=== PATIENT | male | born 1990 | race Caucasian/White ===

== ENCOUNTER 2019-07-05 23:43 | Inpatient (IN) | payer MEDICAID ==
[~2019-07-05] VITALS: Ht 177.8 cm; Wt 72.6 kg
[2019-07-05 23:45] VITALS: BP_SYST 152
[2019-07-06] MEDS ORDERED: PREDNISONE 20 MG TABLET PO ONE
[2019-07-06] MEDS ORDERED: IPRATROPIUM/ALBUTEROL SULFATE 3 ML AMPUL.NEB (DUONEB) INH ONE ×3
[2019-07-06] MEDS ORDERED: IPRATROPIUM/ALBUTEROL SULFATE 3 ML AMPUL.NEB (DUONEB) ONE (00:16)
[2019-07-06] MEDS ORDERED: ALBUTEROL SULFATE 0.083% 2.5 MG/3 ML VIAL.NEB INH ONE ×3 (01:00→02:14)
[2019-07-06] MEDS ORDERED: MAGNESIUM SULFATE 50 ML IV ONE (01:00)
[2019-07-06 01:38] LABS: BASOPHILS # (AUTO) 0.1 K/uL (0.0-0.2); BASOPHILS % (AUTO) 0.5 % (0.0-2.0); EOSINOPHILS # (AUTO) 0.5 K/uL (0.0-0.4); EOSINOPHILS % (AUTO) 3.4 % (0.0-4.0); HEMATOCRIT 48.9 % (36-54); LYMPHOCYTES # (AUTO) 1.2 K/uL (1.0-5.5); LYMPHOCYTES % (AUTO) 8.3 % (20.5-51.5); MEAN CORPUSCULAR HEMOGLOBIN 32 pg (27-31); MEAN CORPUSCULAR HGB CONC 35 % (32-36); MEAN CORPUSCULAR VOLUME 91 fL (79.0-98.0); MONOCYTES # (AUTO) 1.2 K/uL (0.0-1.0); MONOCYTES % (AUTO) 8.2 % (1.7-9.3); NEUTROPHILS # (AUTO) 11.3 K/uL (1.8-7.7); NEUTROPHILS % (AUTO) 79.6 % (40.0-70.0); PLATELET COUNT (AUTO) 272 K/uL (130-430); RED BLOOD CELL COUNT(AUTO) 5.39 MIL/uL (4.2-6.2); RED CELL DISTRIBUTION WIDTH 13.6 % (9.0-15.0); WHITE BLOOD COUNT (AUTO) 14.2 K/uL (4.8-10.8)
[2019-07-06 01:46] LABS: CALCIUM 8.8 mg/dL (8.4-11.0); CREATININE 0.92 mg/dL (0.55-1.30); POTASSIUM 3.6 mmol/L (3.5-5.1)
[2019-07-06 01:51] LABS: ALBUMIN 4.4 g/dL (3.4-4.8); TOTAL BILIRUBIN 0.7 mg/dL (0.0-1.0)
[2019-07-06 03:40] VITALS: BP_SYST 152
[2019-07-06] MEDS ORDERED: FLU VACC QS2019-20 36MOS UP/PF 60 MCG/0.5 ML SYRINGE I.M. PRN (04:00)
[2019-07-06 04:23] VITALS: BP_SYST 152
[2019-07-06] MEDS ORDERED: IPRATROPIUM/ALBUTEROL SULFATE 3 ML AMPUL.NEB (DUONEB) INH PRN (04:30)
[2019-07-06] MEDS ORDERED: ONDANSETRON HCL 4 MG/2 ML VIAL IVP PRN (06:30)
[2019-07-06] MEDS ORDERED: HYDROcodone/ACETAMIN 5-325 MG TAB (NORCO/ VICODIN) PO PRN (06:30)
[2019-07-06] MEDS ORDERED: ACETAMINOPHEN 325 MG TABLET PO PRN (06:30)
[2019-07-06] MEDS: IPRATROPIUM/ALBUTEROL SULFATE 3 ML AMPUL.NEB (DUONEB) INH SCH ×3 (07:19→19:51)
[2019-07-06 07:55] VITALS: BP_SYST 141
[2019-07-06 08:30] LABS: BASOPHILS % (AUTO) 0.5 % (0.0-2.0); EOSINOPHILS % (AUTO) 0.1 % (0.0-4.0); HEMATOCRIT 49.9 % (36-54); HEMOGLOBIN 17.5 g/dL (14.0-18.0); LYMPHOCYTES # (AUTO) 0.3 K/uL (1.0-5.5); LYMPHOCYTES % (AUTO) 5.7 % (20.5-51.5); MEAN CORPUSCULAR HEMOGLOBIN 32 pg (27-31); MEAN CORPUSCULAR HGB CONC 35 % (32-36); MEAN CORPUSCULAR VOLUME 91 fL (79.0-98.0); MONOCYTES # (AUTO) 0.1 K/uL (0.0-1.0); MONOCYTES % (AUTO) 2.5 % (1.7-9.3); NEUTROPHILS # (AUTO) 4.1 K/uL (1.8-7.7); NEUTROPHILS % (AUTO) 91.2 % (40.0-70.0); PLATELET COUNT (AUTO) 281 K/uL (130-430); RED BLOOD CELL COUNT(AUTO) 5.48 MIL/uL (4.2-6.2); RED CELL DISTRIBUTION WIDTH 13.4 % (9.0-15.0)
[2019-07-06 08:31] LABS: WHITE BLOOD COUNT (AUTO) 4.4 K/uL (4.8-10.8)
[2019-07-06 08:42] LABS: PROTHROMBIN TIME 9.9 SECS (9.5-12.5)
[2019-07-06 08:56] LABS: ANION GAP 10 (5-15); CALCIUM 9.4 mg/dL (8.4-11.0); CHLORIDE 102 mmol/L (98-107); CREATININE 0.91 mg/dL (0.55-1.30); GFR AFRICAN AMERICAN 125 mL/min (>90); GLUCOSE 158 mg/dL (70-99); PHOSPHORUS 1.6 mg/dL (2.7-4.5); POTASSIUM 4.2 mmol/L (3.5-5.1); SODIUM SERUM 136 mmol/L (136-145); THYROID STIMULATING HORMONE 0.24 uIu/mL (0.36-3.74); UREA NITROGEN, BLOOD 14 mg/dL (8-21)
[2019-07-06 09:16] LABS: CHOLESTEROL 117 mg/dL (<200); HDL CHOLESTEROL 85 mg/dL (>45); LDL CHOLESTEROL 44 mg/dL (<100); TRIGLYCERIDES 23 mg/dL (30-150)
[2019-07-06] MEDS: methylPREDNISolone SOD SUCC/PF 62.5 MG/ML VIAL IVP SCH ×2 (09:53→20:21)
[2019-07-06] MEDS: DOCUSATE SODIUM 100 MG CAPSULE PO SCH ×2 (09:53→21:00)
[2019-07-06] MEDS ORDERED: THIAMINE HCL 100 MG TABLET PO ONE (10:15)
[2019-07-06] MEDS ORDERED: MULTIVITAMINS TAB 1 TABLET PO ONE (10:15)
[2019-07-06] MEDS ORDERED: FOLIC ACID 1 MG TABLET PO ONE (10:15)
[2019-07-06] MEDS ORDERED: AZITHROMYCIN 250 MG TABLET PO ONE (10:15)
[2019-07-06 11:50] VITALS: BP_SYST 138
[2019-07-06 16:00] VITALS: BP_SYST 141
[2019-07-06 19:26] LABS: BILIRUBIN,URINE NEGATIVE (NEGATIVE); BLOOD, URINE NEGATIVE (NEGATIVE); CLARITY/URINE CLEAR (CLEAR); COLOR,URINE YELLOW (YELLOW); GLUCOSE,URINE 1+ (NEGATIVE); KETONES,URINE TRACE (NEGATIVE); LEUKOCYTE ESTERASE ,URINE NEGATIVE (NEGATIVE); NITRITE, URINE NEGATIVE (NEGATIVE); PROTEIN URINE TRACE (NEGATIVE); UROBILINOGEN,URINE 0.2 (0.2-1.0)
[2019-07-06 19:41] LABS: BACTERIA,URINE FEW /HPF (None Seen); MUCUS,URINE None Seen /LPF (None Seen); RBC,URINE NONE SEEN /HPF (0-3); WBC,URINE 0-3 /HPF (0-3)
[2019-07-06 20:00] VITALS: BP_SYST 127
[2019-07-07] VITALS: BP_SYST 131
[2019-07-07] MEDS: IPRATROPIUM/ALBUTEROL SULFATE 3 ML AMPUL.NEB (DUONEB) INH SCH ×3 (01:00→13:00)
[2019-07-07 06:25] LABS: BASOPHILS % (AUTO) 0.1 % (0.0-2.0); HEMATOCRIT 50.3 % (36-54); HEMOGLOBIN 17.5 g/dL (14.0-18.0); LYMPHOCYTES # (AUTO) 0.6 K/uL (1.0-5.5); MEAN CORPUSCULAR HEMOGLOBIN 32 pg (27-31); MEAN CORPUSCULAR HGB CONC 35 % (32-36); MEAN CORPUSCULAR VOLUME 92 fL (79.0-98.0); MONOCYTES # (AUTO) 0.8 K/uL (0.0-1.0); MONOCYTES % (AUTO) 4.8 % (1.7-9.3); NEUTROPHILS # (AUTO) 14.9 K/uL (1.8-7.7); NEUTROPHILS % (AUTO) 91.1 % (40.0-70.0); PLATELET COUNT (AUTO) 302 K/uL (130-430); RED BLOOD CELL COUNT(AUTO) 5.48 MIL/uL (4.2-6.2); RED CELL DISTRIBUTION WIDTH 13.3 % (9.0-15.0); WHITE BLOOD COUNT (AUTO) 16.4 K/uL (4.8-10.8)
[2019-07-07 06:46] LABS: CALCIUM 9.6 mg/dL (8.4-11.0); CREATININE 0.79 mg/dL (0.55-1.30); POTASSIUM 4.2 mmol/L (3.5-5.1)
[2019-07-07 08:00] VITALS: BP_SYST 147
[2019-07-07] MEDS ORDERED: FOLIC ACID 1 MG TABLET PO SCH (09:00)
[2019-07-07] MEDS ORDERED: THIAMINE HCL 100 MG TABLET PO SCH (09:00)
[2019-07-07] MEDS: methylPREDNISolone SOD SUCC 40 MG/ML VIAL IVP SCH ×2 (09:00→10:01)
[2019-07-07] MEDS ORDERED: MULTIVITAMINS TAB 1 TABLET PO SCH (09:00)
[2019-07-07] MEDS ORDERED: AZITHROMYCIN 250 MG TABLET PO SCH (09:00)
[2019-07-07] MEDS ORDERED: ALBMDI INH (09:07)
[2019-07-07] MEDS ORDERED: PRED10TA PO (09:07)
[2019-07-07] MEDS: DOCUSATE SODIUM 100 MG CAPSULE PO SCH (10:00)
[2019-07-07 12:33] VITALS: BP_SYST 157
[2019-07-07 16:00] VITALS: BP_SYST 154
[2019-07-07 17:03] VITALS: BP_SYST 154
== END 2019-07-07 17:30 | disposition home or self-care (01) | DRG 133 ==
LOC: SED 23:43 → STU 07-06 02:56 → SMU 07-06 14:20
PROVIDERS: ADMIT Student in an Organized Health Care Education/Training Program; ATTEND Student in an Organized Health Care Education/Training Program
PROC: 5A09357 Assistance with Respiratory Ventilation, Less than 24 Consecutive Hours, Continuous Positive Airway Pressure (ICD-10-PCS; principal; 2019-07-06)
DX: J96.01 Acute respiratory failure with hypoxia (principal); E83.39 Other disorders of phosphorus metabolism; J45.901 Unspecified asthma with (acute) exacerbation; F10.20 Alcohol dependence, uncomplicated; F12.90 Cannabis use, unspecified, uncomplicated; F15.90 Other stimulant use, unspecified, uncomplicated; F17.210 Nicotine dependence, cigarettes, uncomplicated; Z91.19 Patient's noncompliance with other medical treatment and regimen; Z88.0 Allergy status to penicillin; Z79.899 Other long term (current) drug therapy
CPT/HCPCS: 36415; 71045; 80048; 80053; 80061; 81000-TC; 83036; 83735-TC; 83880; 84100-TC; 84443-TC; 84484; 85025; 85610-TC; 85730-TC; 93005; 94640; 94660; 94760; 96365; 99285; J1030; J2930; J3475; J7512; J7613; J7620; Q0144

== ENCOUNTER 2019-07-26 07:14 | Emergency (ER) | payer MEDICAID ==
[~2019-07-26] VITALS: Ht 175.3 cm; Wt 74.8 kg
[~2019-07-26 07:14] MED LIST: ALBMDI INH; PRED10TA PO
[2019-07-26 07:17] VITALS: BP_SYST 142
--- NOTE | 2019-07-26 07:24 | NUR ---
Patient to ER bed 2 to gown for evaluation. Side rails up. Report given to Leonardo ALVARES
--- NOTE | 2019-07-26 07:25 | NUR ---
RN at bedside getting verbal orders from MD and assessing pt. RT at bedside as well and pt is getting first breathing tx.
--- NOTE | 2019-07-26 07:30 | NUR ---
IV access placed 20g in left ac in one attempt. Solumedrol given
--- NOTE | 2019-07-26 07:40 | NUR ---
MD Garay at bedside assessing pt.
[2019-07-26] MEDS ORDERED: IPRATROPIUM/ALBUTEROL SULFATE 3 ML AMPUL.NEB (DUONEB) INH ONE ×4 (07:45→08:15)
[2019-07-26] MEDS: methylPREDNISolone SOD SUCC/PF 62.5 MG/ML VIAL IVP ONE (08:07)
[2019-07-26] MEDS: MAGNESIUM SULFATE 50 ML IV ONE (08:11)
--- NOTE | 2019-07-26 08:53 | NUR ---
Pt has removed the bipap. RT notified. RT is removing the Bipap.
--- NOTE | 2019-07-26 09:07 | NUR ---
pt is up walking , going to toilet. stable. 02 sat is 99-100% on RA.
--- NOTE | 2019-07-26 09:10 | NUR ---
MD Meyer at bedside re-evaluating pt. pt is eating breakfast and talking with his girlfriend at bedside.
--- NOTE | 2019-07-26 09:45 | NUR ---
MD Meyer re-evaluating pt and ordered another breathing tx.
[2019-07-26] MEDS ORDERED: IPRATROPIUM BROM 0.5 MG/2.5 ML VIAL.NEB (ATROVENT) INH ONE (10:00)
[2019-07-26] MEDS ORDERED: ALBUTEROL SULFATE 0.083% 2.5 MG/3 ML VIAL.NEB INH ONE (10:00)
[2019-07-26 10:50] VITALS: BP_SYST 127
--- NOTE | 2019-07-26 10:50 | NUR ---
DC pt home with prescriptions and education. pt is stable and relaxed. was sleeping
== END 2019-07-26 10:50 | disposition home or self-care (01) ==
LOC: SED 07:14
DX: J45.909 Unspecified asthma, uncomplicated (principal); F17.290 Nicotine dependence, other tobacco product, uncomplicated; Z88.0 Allergy status to penicillin; Z88.8 Allergy status to other drugs, medicaments and biological substances
CPT/HCPCS: 94640; 94660; 96365; 96375; 99285

== ENCOUNTER 2019-08-16 17:54 | Emergency (ER) | payer MEDICAID ==
[~2019-08-16] VITALS: Ht 175.3 cm; Wt 65.8 kg
[2019-08-16 18:00] VITALS: BP_SYST 147
--- NOTE | 2019-08-16 18:04 | NUR ---
Patient to ER bed 7 to gown for evaluation. Side rails up. Report given to DIA NELSON.
--- NOTE | 2019-08-16 18:05 | NUR ---
Patient is awake, alert, and oriented x4. Patient states he started having SOB 2 days ago and his inhaler did not work. Patient is not very forthcoming with answers to questions.
--- NOTE | 2019-08-16 18:10 | NUR ---
ER Dr. Oconnell at bedside examining patient.
[2019-08-16] MEDS ORDERED: MAGNESIUM SULFATE 1 GM in NS 50 ML IV ONE (18:15)
[2019-08-16] MEDS ORDERED: IPRATROPIUM BROM 0.5 MG/2.5 ML VIAL.NEB (ATROVENT) INH ONE ×2 (18:15→18:30)
[2019-08-16] MEDS ORDERED: ALBUTEROL SULFATE 0.083% 2.5 MG/3 ML VIAL.NEB INH ONE ×2 (18:15→18:30)
[2019-08-16] MEDS ORDERED: methylPREDNISolone SOD SUCC/PF 62.5 MG/ML VIAL IVP ONE (18:15)
[2019-08-16] MEDS ORDERED: MAGNESIUM SULFATE 1 GM/2 ML VIAL ONE (18:44)
--- NOTE | 2019-08-16 18:45 | NUR ---
Patient instructed that we need a urine sample, he verbalized understanding. Sample cup provided.
[2019-08-16 18:58] LABS: BASOPHILS # (AUTO) 0.1 K/uL (0.0-0.2); BASOPHILS % (AUTO) 0.8 % (0.0-2.0); CALCIUM 9.1 mg/dL (8.4-11.0); CREATININE 0.95 mg/dL (0.55-1.30); EOSINOPHILS # (AUTO) 0.4 K/uL (0.0-0.4); EOSINOPHILS % (AUTO) 3.6 % (0.0-4.0); HEMATOCRIT 50.5 % (36-54); HEMOGLOBIN 17.6 g/dL (14.0-18.0); LYMPHOCYTES # (AUTO) 2.1 K/uL (1.0-5.5); LYMPHOCYTES % (AUTO) 17.9 % (20.5-51.5); MEAN CORPUSCULAR HEMOGLOBIN 32 pg (27-31); MEAN CORPUSCULAR HGB CONC 35 % (32-36); MEAN CORPUSCULAR VOLUME 90 fL (79.0-98.0); MONOCYTES # (AUTO) 0.9 K/uL (0.0-1.0); MONOCYTES % (AUTO) 8.1 % (1.7-9.3); NEUTROPHILS % (AUTO) 69.6 % (40.0-70.0); PLATELET COUNT (AUTO) 255 K/uL (130-430); POTASSIUM 3.9 mmol/L (3.5-5.1); RED BLOOD CELL COUNT(AUTO) 5.59 MIL/uL (4.2-6.2); RED CELL DISTRIBUTION WIDTH 13.9 % (9.0-15.0); WHITE BLOOD COUNT (AUTO) 11.5 K/uL (4.8-10.8)
[2019-08-16 19:03] LABS: ALBUMIN 4.4 g/dL (3.4-4.8)
--- NOTE | 2019-08-16 19:11 | NUR ---
Report given to DIA Cali for continuation of care.
[2019-08-16 19:59] VITALS: BP_SYST 156
--- NOTE | 2019-08-16 19:59 | NUR ---
Patient given written and verbal discharge instructions and verbalizes understanding. ER MD discussed with patient the results and treatment provided. Patient in stable condition. ID arm band removed. IV catheter removed intact and dressing applied, no active bleeding. Rx of Zithrom,ax, Proventil, Prednisone given. Patient educated on pain management and to follow up with PMD. Pain Scale 0. Opportunity for questions provided and answered. Medication side effect fact sheet provided.
== END 2019-08-16 19:59 | disposition home or self-care (01) ==
LOC: SED 17:54
DX: J45.901 Unspecified asthma with (acute) exacerbation (principal); F12.90 Cannabis use, unspecified, uncomplicated; F17.210 Nicotine dependence, cigarettes, uncomplicated; Z88.0 Allergy status to penicillin; Z79.899 Other long term (current) drug therapy
CPT/HCPCS: 36415; 80053; 84484; 85025; 94640; 96374; 99284; G0482; J2930; J3475; J7030; J7613

== ENCOUNTER 2019-10-16 01:19 | Emergency (ER) | payer MEDICAID ==
[~2019-10-16] VITALS: Ht 175.3 cm; Wt 77.1 kg
[2019-10-16 01:55] VITALS: BP_SYST 143
--- NOTE | 2019-10-16 02:06 | NUR ---
Pt ambulatory to bed 1 for evaluation
--- NOTE | 2019-10-16 02:19 | NUR ---
Pt presents to ER with c/o asthma exacerbation. Pt A&Ox4. Pt states he has been short of breath for 3 days but SOB got progressively worse today. Pt states he ran out of asthma medication. Upon assessment, pt bilateral lung sounds diminished with wheezing present. Pt using accessory muscles to breath. Pt states he has increased asthma exacerbations since May 2019. Pt states he stopped smoking cigarettes in May due to asthma exacerbations. Pt states he still occasionally smokes marijuana. Will continue to monitor.
--- NOTE | 2019-10-16 02:40 | NUR ---
ER Dr. Segal at bedside examining patient.
[2019-10-16] MEDS ORDERED: LevALBUTEROL HCL 1.25 MG/0.5 ML *CONC.* VIAL.NEB (XOPENEX CONC.) INH ONE ×4 (02:45→05:00)
[2019-10-16] MEDS ORDERED: IPRATROPIUM BROM 0.5 MG/2.5 ML VIAL.NEB (ATROVENT) INH ONE (02:45)
[2019-10-16] MEDS ORDERED: PREDNISONE 20 MG TABLET PO ONE (02:45)
--- NOTE | 2019-10-16 02:48 | NUR ---
Pt medicated with prednisone PO. Pt tolerated well. Will continue to monitor.
--- NOTE | 2019-10-16 02:55 | NUR ---
Respiratory at bedside.
--- NOTE | 2019-10-16 03:36 | NUR ---
Respiratory at bedside.
--- NOTE | 2019-10-16 03:57 | NUR ---
ER Dr. Segal at bedside examining patient.
[2019-10-16] MEDS ORDERED: ALBUTEROL SULFATE 0.083% 2.5 MG/3 ML VIAL.NEB INH ONE ×2 (04:00→04:22)
--- NOTE | 2019-10-16 04:07 | NUR ---
Respiratory at bedside.
--- NOTE | 2019-10-16 04:40 | NUR ---
Pt states, "Thank you, I feel like I can actually breath now." MD Segal notified. Will continue to monitor.
[2019-10-16 05:20] VITALS: BP_SYST 136
--- NOTE | 2019-10-16 05:20 | NUR ---
Patient given written and verbal discharge instructions and verbalizes understanding. ER MD Segal discussed with patient the results and treatment provided. Patient in stable condition. ID arm band removed. Rx of albuterol nebulizer, albuterol inhaler, and prednisone given. Patient educated on pain management and to follow up with PMD. Pain Scale 0/10. Opportunity for questions provided and answered. Medication side effect fact sheet provided.
== END 2019-10-16 05:20 | disposition home or self-care (01) ==
LOC: SED 01:19
DX: J45.901 Unspecified asthma with (acute) exacerbation (principal); I10 Essential (primary) hypertension; F12.90 Cannabis use, unspecified, uncomplicated; Z87.891 Personal history of nicotine dependence
CPT/HCPCS: 94640; 99285; J7512; J7612; J7613

== ENCOUNTER 2019-10-27 11:39 | Inpatient (IN) | payer MEDICAID ==
[2019-10-27] VITALS (14 sets, daily range): BP systolic 110–164
[~2019-10-27] VITALS: Ht 175.3 cm; Wt 78.9 kg
--- NOTE | 2019-10-27 12:10 | NUR ---
PT C/O ASTHMA EXACERBATION UNRESOLVED
[2019-10-27] MEDS ORDERED: ALBUTEROL SULFATE 0.083% 2.5 MG/3 ML VIAL.NEB INH ONE ×2 (12:15→12:26)
[2019-10-27] MEDS ORDERED: IPRATROPIUM BROM 0.5 MG/2.5 ML VIAL.NEB (ATROVENT) INH ONE ×2 (12:15→12:26)
[2019-10-27] MEDS ORDERED: PREDNISONE 20 MG TABLET PO ONE (12:15)
--- NOTE | 2019-10-27 12:15 | NUR ---
RT AT BEDSIDE
--- NOTE | 2019-10-27 12:15 | NUR ---
Patient to ER bed 5 to gown for evaluation. Side rails up. Report given to LANA ALVARES.
--- NOTE | 2019-10-27 12:25 | NUR ---
Patient came to the ER due to SOB. Patient advised that he ran out of his albuterol and began having issues breathing when coming to the ER. Patient was tachypnic with a rate of 22, use of accessory muscles to breathe. Helped patient tripod and patient was diaphoretic. Patient is AOx4. MD aware of patient's SOB and difficulty breathing. Patient already started on breathing treatment.
[2019-10-27] MEDS ORDERED: MAGNESIUM SULFATE 50 ML IV ONE (12:45)
[2019-10-27] MEDS ORDERED: NACL 0.9% 1,000 ML IV ONE (12:45)
--- NOTE | 2019-10-27 13:00 | NUR ---
# 20 gauge angiocath placed to left forearm. Use of asceptic technique. Opsite placed over site. Blood return noted. Flushed with 10 cc of normal saline. No evidence of infiltration noted.
[2019-10-27 13:10] LABS: BASOPHILS # (AUTO) 0.1 K/uL (0.0-0.2); BASOPHILS % (AUTO) 0.6 % (0.0-2.0); EOSINOPHILS # (AUTO) 0.5 K/uL (0.0-0.4); HEMATOCRIT 51.6 % (36-54); HEMOGLOBIN 17.3 g/dL (14.0-18.0); LYMPHOCYTES % (AUTO) 12.1 % (20.5-51.5); MEAN CORPUSCULAR HEMOGLOBIN 31 pg (27-31); MEAN CORPUSCULAR HGB CONC 34 % (32-36); MEAN CORPUSCULAR VOLUME 91 fL (79.0-98.0); MONOCYTES # (AUTO) 1.9 K/uL (0.0-1.0); MONOCYTES % (AUTO) 11.9 % (1.7-9.3); NEUTROPHILS # (AUTO) 11.8 K/uL (1.8-7.7); PLATELET COUNT (AUTO) 301 K/uL (130-430); RED BLOOD CELL COUNT(AUTO) 5.69 MIL/uL (4.2-6.2); RED CELL DISTRIBUTION WIDTH 14.2 % (9.0-15.0); WHITE BLOOD COUNT (AUTO) 16.3 K/uL (4.8-10.8)
[2019-10-27 13:21] LABS: CALCIUM 9.7 mg/dL (8.4-11.0); CREATININE 0.86 mg/dL (0.55-1.30); POTASSIUM 3.5 mmol/L (3.5-5.1)
[2019-10-27 13:26] LABS: ALBUMIN 4.7 g/dL (3.4-4.8); TOTAL BILIRUBIN 0.8 mg/dL (0.0-1.0)
--- NOTE | 2019-10-27 13:30 | NUR ---
Patient became air hungry and tachypnic with use of accessory muscles to breath. Informed MD and intubation started. 2 RT and 2 RN at bedside. 10 mg of Succinylcholine as per MD. Patient intubated with 7.5 ET tube and lip line 23 cm. Vitals were HR 123, 96%, resp 20, 184/107. Right nare NG tube placed. Placment confirmed via xray by MD.
[2019-10-27 13:34] LABS: NEUTROPHILS % (AUTO) 72.4 % (40.0-70.0)
[2019-10-27] MEDS ORDERED: fentaNYL CITRATE/PF 100 MCG/2 ML AMP ONE (13:34)
[2019-10-27] MEDS ORDERED: PROPOFOL DRIP 100 ML IV ONE ×3 (13:45→16:21)
[2019-10-27] MEDS ORDERED: fentaNYL CITRATE/PF 100 MCG/2 ML AMP IVP ONE (13:45)
[2019-10-27] MEDS ORDERED: methylPREDNISolone SOD SUCC/PF 62.5 MG/ML VIAL IVP ONE (14:00)
[2019-10-27] MEDS ORDERED: LORazepam 2 MG/ML VIAL IVP ONE (14:00)
--- NOTE | 2019-10-27 15:15 | NUR ---
Patient was seen sitting in bed trying to pull tubes. RN Randy and RN Joseph came to bed 1 to assist in preventing injury to patient. Patient broke bilateral wrist restraints and self extubated and removed NG tube. MD made aware. Patient reintubated verocoronium 10 mg as per MD. Patient reintubated with ET 7 and lip line of 24. OG tube placed. Placment confirmed via xray and confirmed by MD.
[2019-10-27] MEDS ORDERED: VECURONIUM BROMIDE 10 MG/VIAL (NORCURON) IVP ONE (15:30)
[2019-10-27] MEDS ORDERED: SUCCINYLCHOLINE CHLORIDE 20 MG/ML(QUELICIN) IVP ONE (16:00)
[2019-10-27] MEDS ORDERED: VECURONIUM BROMIDE 10 MG/VIAL (NORCURON) IV ONE (16:00)
--- NOTE | 2019-10-27 16:05 | NUR ---
Patient will be admitted to care of Joseph ALVARES. Admitted to ICU unit. Will go to room 8. Belongings list completed. Complete and up to date summary report printed. Resumed care.
--- NOTE | 2019-10-27 16:15 | NUR ---
Witnessed diprivan drip infusing at 45 mcgs/kg/min on the pump.
--- NOTE | 2019-10-27 16:15 | NUR ---
Witnessed Diprivan increased to 45 mcg/kg/min
--- NOTE | 2019-10-27 16:17 | NUR ---
CONSULT PULMO. CONSULTING MD: DR. COOPER SPOKE TO: LEONOR DIALED: [phone] ORDERED BY: DR. WALL
--- NOTE | 2019-10-27 16:25 | NUR ---
Witnessed Diprivan drip infusing at 50 mcgs/kg/min on the pump.
--- NOTE | 2019-10-27 16:25 | NUR ---
Witnessed Diprivan increased to 50 mcg/kg/min
[2019-10-27] MEDS ORDERED: PROPOFOL 200MG/ 20ML VIAL (DIPRIVAN) IV ONE (16:30)
[2019-10-27 16:45] LABS: BARBITURATE, URINE NEGATIVE (NEG <=200); METHAMPHETAMINES SCREEN,URINE NEGATIVE (NEG <=500); URINE AMPHETAMINE POSITIVE (NEG <=500)
[2019-10-27 16:46] LABS: BENZODIAZEPINE, URINE NEGATIVE (NEG <=150); CANNABINOID, URINE POSITIVE (NEG <=50); COCAINE, URINE NEGATIVE (NEG <=150); OPIATE, URINE NEGATIVE (NEG <=100); PHENCYCLIDINE SCREEN,URINE NEGATIVE (NEG <=25); UR TRICYCLIC ANTIDEPRESSANTS NEGATIVE (NEG <=300); URINE METHADONE NEGATIVE (NEG <=200); URINE OXYCODONE SCREEN NEGATIVE (NEG <=100); URINE PROPOXYPHENE SCREEN NEGATIVE (NEG <=300)
[2019-10-27] MEDS ORDERED: KCL 40 mEq in 100 mL (PREMIX) 100 ML IV ONE (17:15)
[2019-10-27] MEDS: LORazepam 2 MG/ML VIAL IVP PRN ×3 (17:19→20:56)
[2019-10-27] MEDS: NACL 0.9% 1,000 ML IV SCH ×2 (17:22→23:03)
--- NOTE | 2019-10-27 17:34 | NUR ---
Called point of contact Brianna Sierra [phone] who is next of kin and person to notify. Per Brianna the patient does not have a permanent place of residence and lives in his car or with friends. Also informed that the patient has visited [facility] and [facility] for similar issues over the last few months. The patient is not in contact with an relatives including any direct kin. She will be coming to visit him after 6pm.
[2019-10-27] MEDS ORDERED: POTASSIUM CHLORIDE 40 MEQ in NS 250 ML IV ONE (17:45)
[2019-10-27] MEDS ORDERED: MORPHINE 4 MG/ML INJ. SYRINGE ONE (18:00)
[2019-10-27] MEDS: methylPREDNISolone SOD SUCC/PF 62.5 MG/ML VIAL IVP SCH ×2 (18:54→23:03)
[2019-10-27] MEDS: MONTELUKAST 10 MG TABLET PO SCH (18:54)
[2019-10-27] MEDS: MORPHINE 4 MG/ML INJ. SYRINGE IVP PRN ×2 (18:55→20:55)
--- NOTE | 2019-10-27 19:25 | NUR ---
Closing Note Provided plan of care via sbar to receiving nurse RN. Completed patient round. Safety measures met.
--- NOTE | 2019-10-27 19:30 | NUR ---
Pt in bed VSS tolerating mechanical ventilator. On 4 point restraint, Good circulation and without redness noted. Safety precaution observed. Colon catheter in placed draining cloudy yellow urine to gravity. Diprivan drip running. Will continue to monitor Pt.
[2019-10-27] MEDS: BUDESONIDE 0.5 MG/2 ML AMPUL.NEB INH SCH (19:35)
[2019-10-27] MEDS: IPRATROPIUM/ALBUTEROL SULFATE 3 ML AMPUL.NEB (DUONEB) INH SCH ×2 (19:35→23:05)
[2019-10-27] MEDS ORDERED: FAMOTIDINE PF 20 MG/2 ML VIAL IVP SCH (21:00)
[2019-10-27] MEDS: FAMOTIDINE PF 20 MG/2 ML VIAL IVP SCH (21:00)
--- NOTE | 2019-10-27 21:30 | NUR ---
Spoke with Dr Dove regarding Pt's ABG. No new orders received. Will continue to monitor Pt.
[2019-10-27] MEDS: PROPOFOL DRIP 100 ML IV PRN (21:55)
[2019-10-28] VITALS (29 sets, daily range): BP systolic 126–156
--- NOTE | 2019-10-28 | NUR ---
Pt in bed, no acute distress noted. Safety precaution observed. Will continue to monitor Pt.
[2019-10-28] MEDS: PROPOFOL DRIP 100 ML IV PRN ×7 (02:39→23:56)
[2019-10-28] MEDS: IPRATROPIUM/ALBUTEROL SULFATE 3 ML AMPUL.NEB (DUONEB) INH SCH ×4 (03:45→23:25)
--- NOTE | 2019-10-28 04:00 | NUR ---
Pt in bed, no acute distress noted. Safety precaution observed. Will continue to monitor Pt.
[2019-10-28] MEDS: LORazepam 2 MG/ML VIAL IVP PRN ×6 (04:36→23:52)
[2019-10-28] MEDS: MORPHINE 4 MG/ML INJ. SYRINGE IVP PRN ×7 (04:36→23:53)
[2019-10-28] MEDS: methylPREDNISolone SOD SUCC/PF 62.5 MG/ML VIAL IVP SCH ×3 (05:09→17:25)
[2019-10-28] MEDS: NACL 0.9% 1,000 ML IV SCH ×2 (05:10→08:36)
[2019-10-28 05:49] LABS: BASOPHILS # (AUTO) 0.1 K/uL (0.0-0.2); BASOPHILS % (AUTO) 0.3 % (0.0-2.0); HEMATOCRIT 46.5 % (36-54); HEMOGLOBIN 15.3 g/dL (14.0-18.0); LYMPHOCYTES # (AUTO) 0.6 K/uL (1.0-5.5); MEAN CORPUSCULAR HEMOGLOBIN 30 pg (27-31); MEAN CORPUSCULAR HGB CONC 33 % (32-36); MEAN CORPUSCULAR VOLUME 92 fL (79.0-98.0); MONOCYTES # (AUTO) 0.8 K/uL (0.0-1.0); NEUTROPHILS # (AUTO) 18.7 K/uL (1.8-7.7); NEUTROPHILS % (AUTO) 92.7 % (40.0-70.0); PLATELET COUNT (AUTO) 229 K/uL (130-430); RED BLOOD CELL COUNT(AUTO) 5.06 MIL/uL (4.2-6.2); WHITE BLOOD COUNT (AUTO) 20.1 K/uL (4.8-10.8)
[2019-10-28 06:14] LABS: ALBUMIN 3.4 g/dL (3.4-4.8); CALCIUM 8.8 mg/dL (8.4-11.0); CREATININE 0.86 mg/dL (0.55-1.30); PHOSPHORUS 3.7 mg/dL (2.7-4.5); POTASSIUM 4.9 mmol/L (3.5-5.1); TOTAL BILIRUBIN 0.9 mg/dL (0.0-1.0)
--- NOTE | 2019-10-28 06:52 | NUR ---
Report given to oncoming RN. IV lines and skin checked.
--- NOTE | 2019-10-28 07:13 | NUR ---
RECEIVED NURSING REPORT FROM RACKING MACHINE OPERATOR APARNA Aguilera
[2019-10-28] MEDS: BUDESONIDE 0.5 MG/2 ML AMPUL.NEB INH SCH ×2 (08:12→19:41)
[2019-10-28] MEDS: FAMOTIDINE PF 20 MG/2 ML VIAL IVP SCH ×2 (08:35→22:02)
[2019-10-28] MEDS: 0.45% NACL 1,000 ML IV SCH ×2 (10:00→17:27)
--- NOTE | 2019-10-28 10:10 | NUR ---
Nutrition Update Casey Scale 15 noted. Pt admitted for acute respiratory failure. Diet: N/A BMI: 25.8 kg/m2 RD to follow per nutrition care standards.
--- NOTE | 2019-10-28 11:22 | NUR ---
SEE PATIENT, ORDERED CHANGE VENTILATOR SETTING TO AC 18, TV 450, FIO2 50 %, KEEP CLOSE MONITOR
[2019-10-28] MEDS: MONTELUKAST 10 MG TABLET PO SCH (17:26)
--- NOTE | 2019-10-28 19:27 | NUR ---
GIVE COMPLETE NURSING REPORT TO AUTOMOBILE LIGHTS ASSEMBLER TERESE Aguilera
[2019-10-29] VITALS (34 sets, daily range): BP systolic 94–157
[2019-10-29] MEDS: methylPREDNISolone SOD SUCC/PF 62.5 MG/ML VIAL IVP SCH ×4 (00:09→17:11)
[2019-10-29] MEDS: LORazepam 2 MG/ML VIAL IVP PRN ×8 (01:28→20:51)
[2019-10-29] MEDS: MORPHINE 4 MG/ML INJ. SYRINGE IVP PRN ×6 (01:29→20:51)
[2019-10-29] MEDS: 0.45% NACL 1,000 ML IV SCH ×2 (02:40→06:37)
[2019-10-29] MEDS: PROPOFOL DRIP 100 ML IV PRN ×6 (03:19→21:17)
[2019-10-29 06:07] LABS: BASOPHILS % (AUTO) 0.1 % (0.0-2.0); HEMATOCRIT 42.7 % (36-54); HEMOGLOBIN 14.2 g/dL (14.0-18.0); LYMPHOCYTES # (AUTO) 0.5 K/uL (1.0-5.5); LYMPHOCYTES % (AUTO) 3.8 % (20.5-51.5); MEAN CORPUSCULAR HEMOGLOBIN 31 pg (27-31); MEAN CORPUSCULAR HGB CONC 33 % (32-36); MEAN CORPUSCULAR VOLUME 92 fL (79.0-98.0); MONOCYTES # (AUTO) 0.7 K/uL (0.0-1.0); MONOCYTES % (AUTO) 5.5 % (1.7-9.3); NEUTROPHILS # (AUTO) 11.3 K/uL (1.8-7.7); NEUTROPHILS % (AUTO) 90.6 % (40.0-70.0); PLATELET COUNT (AUTO) 205 K/uL (130-430); RED BLOOD CELL COUNT(AUTO) 4.62 MIL/uL (4.2-6.2); RED CELL DISTRIBUTION WIDTH 14.3 % (9.0-15.0); WHITE BLOOD COUNT (AUTO) 12.5 K/uL (4.8-10.8)
[2019-10-29 06:31] LABS: CREATININE 0.8 mg/dL (0.55-1.30)
--- NOTE | 2019-10-29 06:41 | NUR ---
CONTINUES TO BE AGITATED WITH MINIMAL STIMULATION. aTIVAN 2 MG AND MORPHINE 4 MG GIVEN PER ORDERS. dIPRIVAN DRIP AT 60 MCG/K/MIN, EFFECTIVE. WILL CONTINUE TO MONITOR.
[2019-10-29] MEDS: IPRATROPIUM/ALBUTEROL SULFATE 3 ML AMPUL.NEB (DUONEB) INH SCH ×5 (07:00→23:30)
--- NOTE | 2019-10-29 07:15 | NUR ---
Received shift report from night RN using SBAR.
[2019-10-29] MEDS: BUDESONIDE 0.5 MG/2 ML AMPUL.NEB INH SCH ×2 (07:40→19:55)
--- NOTE | 2019-10-29 07:45 | NUR ---
AM ASSESSMENT Pt on Diprivan 60 mcg/min/kg. Apple of 4. Bilateral double wrist restraints in place. Noted temperature of 99.7F. cooling measures in place. Pt on low air loss mattress. Bed locked and in lowest position. Vent AC 18 TV 450, FiO2 50%, no PEEP. Bed locked and in lowest position with call light in hand.
[2019-10-29] MEDS: FAMOTIDINE PF 20 MG/2 ML VIAL IVP SCH ×2 (08:01→20:41)
--- NOTE | 2019-10-29 08:15 | NUR ---
Oral care provided. Pt tolerated well.
[2019-10-29] MEDS ORDERED: metroNIDAZOLE 500 mg/NS 100 ML IV ONE (09:15)
--- NOTE | 2019-10-29 09:56 | NUR ---
SS NOTES/DCP: SAMPLE WEAVER was referred by nursing to see patient for homelessness. Demographic information confirmed and updated. SAMPLE WEAVER received a phone call from girlfriend, Brianna Winston (p: [phone]). Pt is a 29 y/o single male who drove self to the ED for shortness of breath. Pt has been homeless since July 2019 and has been staying at his mom's vehicle in [facility]. Pt's biological mother is Pamela Yeager who is also homeless and pt's legal adopted mother is Randi Mercedes who is also homeless and has not been in contact with pt for over 2 years. Pt has a biological sister Donna Yeager and resides out of state but no contact. Pt does not have any source of income but is receiving food stamps only. Pt has a history of substance abuse; alcohol and meth. Pt also has depression but is not seeing any therapist or psychiatrist for it. Pt has no PCP and has not seen a Primary MD for over 10 years. Per girlfriend, she believes there is a POLST/Advanced Directive on file that was formulated when he was here in June 2019. Pt also has a "good relationship" with his family on his father's side but they all live in [place]. If discharged to SNF, family/gf prefers [facility]. SAMPLE WEAVER informed family that patient has access to a meal, transportation and clothing prior to discharge. SAMPLE WEAVER provided pt/gf homeless, [facility], outpatient mental health, [place] [facility], substance abuse resource, and homeless waiver.
--- NOTE | 2019-10-29 11:00 | NUR ---
Spoke with Brianna Winston over the phone and received brief history of pt. Was informed that PT biological mother Janet Yeager may contact pt and "cause trouble" placed password for pt information and visitation. Password is "[email or web address]". Pt aunty Tania Yeager may contact pt which according to Brianna is okay.
--- NOTE | 2019-10-29 11:35 | NUR ---
Received call from lab. patient (+) MRSA nares. contact isolation precaution started.
--- NOTE | 2019-10-29 12:08 | NUR ---
PAGED PAGED ALEX ANDRADE AT [phone] SPOKE WITH SIERRA.
[2019-10-29] MEDS ORDERED: POTASSIUM CHLORIDE 20 MEQ/PKT PACKET PO ONE ×2 (12:15→17:00)
--- NOTE | 2019-10-29 12:15 | NUR ---
Oral care provided. Pt tolerated well. Noted thin oral secretions >1mL
[2019-10-29] MEDS ORDERED: MUPIROCIN 2% TOPICAL OINTMENT 22 GM NS ONE (12:45)
[2019-10-29] MEDS ORDERED: MUPIROCIN 2% TOPICAL OINTMENT 22 GM NS SCH (12:45)
[2019-10-29] MEDS: metroNIDAZOLE 500 mg/NS 100 ML IV SCH ×2 (13:08→21:05)
[2019-10-29] MEDS: NACL 0.9% 1,000 ML IV SCH ×2 (13:10→21:09)
--- NOTE | 2019-10-29 14:00 | NUR ---
Tube feeding Jevity 1.5 started with 20cc/hr. Dark residual of 35cc aspirated prior to feeding. Goal of 60cc/hr. Will continue to titrate up QH.
--- NOTE | 2019-10-29 15:00 | NUR ---
Tube feeding rate increased to 30cc/hr. Residual of 25cc noted.
--- NOTE | 2019-10-29 16:00 | NUR ---
Tube feeding rate changed to 40cc/hr. 25cc of residual noted.
--- NOTE | 2019-10-29 16:15 | NUR ---
Dr Craven bedside, orders received.
--- NOTE | 2019-10-29 16:20 | NUR ---
Oral care provided, pt tolerated well.
[2019-10-29] MEDS: MONTELUKAST 10 MG TABLET PO SCH (17:11)
[2019-10-29] MEDS ORDERED: THIAMINE HCL 100 MG TABLET GT ONE (17:15)
[2019-10-29] MEDS ORDERED: ERGOCALCIFEROL 8000 UNITS/ML ORAL SOLUTION, 60 ML BOTTLE GT ONE (17:15)
[2019-10-29] MEDS ORDERED: chlordiazePOXIDE HCL 25 MG CAPSULE PO ONE (17:15)
[2019-10-29] MEDS ORDERED: MAG-AL HYDROX/SIMETH 30 ML UDC PO ONE (17:15)
--- NOTE | 2019-10-29 19:10 | NUR ---
Endorsement given to Dmitriy ALVARES using SBAR. Pt resting with ST on monitor. Restraints in place bilateral upper extremities. NS running at 100cc/hr with Jevity 1.5 @ 40cc/hr. Bed locked and in lowest position with call light in hand..
--- NOTE | 2019-10-29 19:20 | NUR ---
Initial note Received patient after report from Justus RN. Patient sedated and no signs of respiratory distress despite tachyepnia RR 40. Sedated with diprivan drip at 50 mcg/k/min and PRN Ativan 2 mg and Morphine 4 mg IVP. will continue to monitor as per unit protocol.
--- NOTE | 2019-10-29 19:30 | NUR ---
Upon assessment of OGT, was noted to have residuals of 100 cc. Due to not tolerating feeding rate, feeding was stopped at this time. will check residuals again for reduction of residuals. Temp 101.1 tylenol 650 mg will be given, will continue to monitor
[2019-10-29] MEDS: ACETAMINOPHEN 650 MG/20.3 ML UDC PO PRN (19:50)
[2019-10-29] MEDS: MUPIROCIN 2% TOPICAL OINTMENT 22 GM NS SCH (20:40)
[2019-10-29] MEDS: POTASSIUM CHLORIDE 20 MEQ/PKT PACKET PO SCH (20:41)
[2019-10-29] MEDS: MAG-AL HYDROX/SIMETH 30 ML UDC PO SCH (20:41)
--- NOTE | 2019-10-29 22:12 | NUR ---
continues to have residuals over 50 cc despite turning feeding off for over 2 hrs. will continue to monitor residuals and possibility of starting feeding at low rate.
[2019-10-30] VITALS (36 sets, daily range): BP systolic 77–135
[2019-10-30] MEDS: methylPREDNISolone SOD SUCC/PF 62.5 MG/ML VIAL IVP SCH ×3 (00:02→11:26)
[2019-10-30] MEDS: MORPHINE 4 MG/ML INJ. SYRINGE IVP PRN ×4 (00:05→13:36)
[2019-10-30] MEDS: LORazepam 2 MG/ML VIAL IVP PRN ×5 (00:07→20:36)
[2019-10-30] MEDS: PROPOFOL DRIP 100 ML IV PRN ×4 (01:24→19:00)
--- NOTE | 2019-10-30 01:50 | NUR ---
patient's O2 saturations on vent 90-91%. Hanane ANAYA was contacted. will continue to monitor
[2019-10-30] MEDS: IPRATROPIUM/ALBUTEROL SULFATE 3 ML AMPUL.NEB (DUONEB) INH SCH ×6 (03:06→23:48)
[2019-10-30] MEDS: metroNIDAZOLE 500 mg/NS 100 ML IV SCH ×3 (05:42→23:22)
[2019-10-30 05:51] LABS: CALCIUM 7.7 mg/dL (8.4-11.0); CREATININE 1.26 mg/dL (0.55-1.30); POTASSIUM 4.8 mmol/L (3.5-5.1)
--- NOTE | 2019-10-30 07:20 | NUR ---
Received report from night RN using SBAR.
[2019-10-30 07:29] LABS: HEMATOCRIT 47.7 % (36-54); MEAN CORPUSCULAR HEMOGLOBIN 31 pg (27-31); MEAN CORPUSCULAR HGB CONC 34 % (32-36); MEAN CORPUSCULAR VOLUME 91 fL (79.0-98.0); RED BLOOD CELL COUNT(AUTO) 5.22 MIL/uL (4.2-6.2); RED CELL DISTRIBUTION WIDTH 13.8 % (9.0-15.0)
[2019-10-30 07:35] LABS: WHITE BLOOD COUNT (AUTO) 1.9 K/uL (4.8-10.8)
--- NOTE | 2019-10-30 07:39 | NUR ---
CRITICAL Value of WBC 1.[address] Paged Dr Craven through exchange. Place PT on Neutropenic precautions. Pt temperature is elevated at 99.9F. Will continue with cooling measures and administer tylenol PRN.
[2019-10-30] MEDS: BUDESONIDE 0.5 MG/2 ML AMPUL.NEB INH SCH ×2 (07:47→19:48)
--- NOTE | 2019-10-30 08:15 | NUR ---
Oral care provided. PT tolerated well.
--- NOTE | 2019-10-30 08:30 | NUR ---
AM ASSESSMENT Pt temporal temperature of 100.4F. Noted dark urine noted in Colon bag. Noted wheezing predominant in Right lower lung. PT tachycardic and RR >40 bpm. Will continue to monitor. Bed locked and in lowest position.
[2019-10-30] MEDS: ERGOCALCIFEROL 8000 UNITS/ML ORAL SOLUTION, 60 ML BOTTLE GT SCH (08:54)
[2019-10-30] MEDS: MAG-AL HYDROX/SIMETH 30 ML UDC PO SCH ×4 (08:55→21:45)
[2019-10-30] MEDS: FAMOTIDINE PF 20 MG/2 ML VIAL IVP SCH ×2 (08:55→21:47)
[2019-10-30] MEDS: THIAMINE HCL 100 MG TABLET GT SCH (08:56)
[2019-10-30] MEDS: POTASSIUM CHLORIDE 20 MEQ/PKT PACKET PO SCH ×2 (08:56→21:48)
[2019-10-30] MEDS: FOLIC ACID 1 MG TABLET PO SCH (08:56)
[2019-10-30] MEDS: chlordiazePOXIDE HCL 25 MG CAPSULE PO SCH ×3 (08:56→21:48)
[2019-10-30] MEDS: MUPIROCIN 2% TOPICAL OINTMENT 22 GM NS SCH ×2 (08:56→23:24)
--- NOTE | 2019-10-30 09:30 | NUR ---
Called Dr Dove for critical value and orders.
[2019-10-30] MEDS: ACETAMINOPHEN 650 MG/20.3 ML UDC PO PRN (09:33)
[2019-10-30] MEDS: NACL 0.9% 1,000 ML IV SCH (09:38)
[2019-10-30 09:58] LABS: BAND % (MANUAL) 26 % (0-6); BASOPHILS % (MANUAL) 0 % (0-2); EOSINOPHILS % (MANUAL) 1 % (0-7); LYMPHOCYTES % (MANUAL) 30 % (20-46); METAMYELOCYTES % 7 % (0-0); MONOCYTES % (MANUAL) 9 % (0-11); MYELOCYTES % 11 % (0-0); PLATELET COUNT (AUTO) 131 K/uL (130-430)
--- NOTE | 2019-10-30 11:15 | NUR ---
ELEVATOR TROUBLESHOOTER attempted to meet with Pt. for a ICU follow-up/ SS contact. However, Pt. remains intubated at this time, not able to participate in assessment. Per RN he does not have family locally and has a friend who has been in communication with PROJECTION WELDING MACHINE OPERATOR and RN Brianna Sierra . Request made to not share any personal information with Pt. bio-mother Pamela Vang code word Vandana, for disclosure of info.
--- NOTE | 2019-10-30 11:30 | NUR ---
Dr Manley on unit. Described pt condition and MD asked to be placed with consult. Dr Sanchez stated he would contact Dr Craven for consult referral.
--- NOTE | 2019-10-30 12:15 | NUR ---
Oral care provided. PT tolerated well.
--- NOTE | 2019-10-30 13:30 | NUR ---
Dr Dove bedside. Orders received.
--- NOTE | 2019-10-30 15:30 | NUR ---
RT NOTES Vent settings to PEEP 8 ordered/done by Dr Dove.
--- NOTE | 2019-10-30 16:00 | NUR ---
Oral care provided. PT tolerated well.
[2019-10-30 16:21] LABS: MEAN CORPUSCULAR HGB CONC 34 % (32-36); MONOCYTES # (AUTO) 0.1 K/uL (0.0-1.0); RED CELL DISTRIBUTION WIDTH 13.9 % (9.0-15.0); WHITE BLOOD COUNT (AUTO) 3.1 K/uL (4.8-10.8)
[2019-10-30 16:29] LABS: BASOPHILS % (AUTO) 0.1 % (0.0-2.0); EOSINOPHILS % (AUTO) 0.5 % (0.0-4.0); HEMATOCRIT 47.7 % (36-54); LYMPHOCYTES # (AUTO) 0.2 K/uL (1.0-5.5); LYMPHOCYTES % (AUTO) 7.6 % (20.5-51.5); MEAN CORPUSCULAR HEMOGLOBIN 31 pg (27-31); MEAN CORPUSCULAR VOLUME 92 fL (79.0-98.0); MONOCYTES % (AUTO) 3.3 % (1.7-9.3); NEUTROPHILS # (AUTO) 2.8 K/uL (1.8-7.7); NEUTROPHILS % (AUTO) 88.5 % (40.0-70.0); PLATELET COUNT (AUTO) 124 K/uL (130-430); RED BLOOD CELL COUNT(AUTO) 5.21 MIL/uL (4.2-6.2)
[2019-10-30] MEDS: MONTELUKAST 10 MG TABLET PO SCH (17:14)
--- NOTE | 2019-10-30 17:30 | NUR ---
Dr Craven bedside, orders received.
[2019-10-30] MEDS ORDERED: OSELTAMIVIR PHOSPHATE 75 MG CAPSULE PO ONE (18:00)
[2019-10-30 18:08] LABS: INR 1.3 (0.80-1.20); PROTHROMBIN TIME 12.8 SECS (9.5-12.5)
--- NOTE | 2019-10-30 18:30 | NUR ---
Dr Rios bedside, orders received.
--- NOTE | 2019-10-30 19:25 | NUR ---
Endorsement given to night RN using SBAR. Pt resting. Bed locked in the lowest position with call light in place. Restraints in place.
--- NOTE | 2019-10-30 19:45 | NUR ---
Opening Note Pt in bed lethargic, sedated. Pt ST on the monitor. ETT in place. AC22, 450, 80% +8. Saturations in the mid 90s. RFA and L Hand IV sites in place. No s/s of infiltration noted. Pt has IVF and Diprivan infusing @45mcg/kg/min. Bilateral wrsit restraints noted. OGT in place, TF on hold for high residual. Colon catheter in place, draining urine to gravity. Safety rounds completed. Will continue to monitor.
--- NOTE | 2019-10-30 21:03 | NUR ---
ORDERS DR. FERNANDEZ DIALED: [phone] SPOKE TO: QUINCY
[2019-10-30] MEDS ORDERED: NOREPINEPHRINE BITARTRATE 4 MG in D5W 246 ML IV PRN (21:15)
[2019-10-30] MEDS ORDERED: NACL 0.9% 1,000 ML IV ONE (21:15)
--- NOTE | 2019-10-30 21:15 | NUR ---
MD Called Spoke w/ Dr. Sanchez regarding Pt status. New orders received. Will carry out as ordered.
[2019-10-30] MEDS ORDERED: NOREPINEPHRINE 4 MG/4 ML VIAL IV ONE (21:43)
[2019-10-30] MEDS: NACL 0.9% IV PRN (21:46)
[2019-10-30] MEDS: NOREPINEPHRINE BITARTRATE IV PRN (21:46)
[2019-10-30] MEDS: LINEZOLID 300 ML IV SCH (21:49)
[2019-10-30] MEDS: methylPREDNISolone SOD SUCC 40 MG/ML VIAL IVP SCH (23:23)
[2019-10-31] VITALS (26 sets, daily range): BP systolic 60–100
[2019-10-31] MEDS: ACETAMINOPHEN 650 MG/20.3 ML UDC PO PRN ×3 (00:27→12:40)
--- NOTE | 2019-10-31 01:30 | NUR ---
RN Rounds Diprivan has been turned off. Pt unresponsive to painful stimuli. No gag reflex noted. BP in the low 90s. Levophed infusing. Will continue to monitor.
--- NOTE | 2019-10-31 02:39 | NUR ---
ORDERS CALLED DR. JAMISON EXCHANGE (CHEESE SPECIALIST FOR ) DIALED: [phone] SPOKE TO: QUINN
--- NOTE | 2019-10-31 03:02 | NUR ---
ORDERS FOLLOW UP CALL TO DR. SHAHEEN MUIR (NARROW GAUGE BRAKEMAN FOR ) DIALED: [phone] SPOKE TO: QUINN
[2019-10-31] MEDS ORDERED: NOREPINEPHRINE 4 MG/4 ML VIAL IV ONE ×2 (03:15→05:35)
[2019-10-31] MEDS: NACL 0.9% 1,000 ML IV SCH ×3 (03:15→18:06)
[2019-10-31] MEDS: NOREPINEPHRINE BITARTRATE IV PRN (03:25)
[2019-10-31] MEDS: NACL 0.9% IV PRN (03:25)
--- NOTE | 2019-10-31 03:30 | NUR ---
ORDERS FOLLOW UP CALL TO DR. JAMISON EXCHANGE (CUPOLA LINER HELPER FOR ) DIALED: [phone] WHITE METAL CORROSION PROOFER CONTACTED DR. JAMISON DIRECTLY DR. JAMISON ANSWERED
--- NOTE | 2019-10-31 03:35 | NUR ---
CHANGE IN CONDITION Dr Whitten notified regarding low O2 Sat, gasping on vent, low BP with Levophed infusing and low urine output. Orders received: 1.Stat ABG 2.NS 1 liter bolus 3.Dopamine to keep MAP greater than 65.
[2019-10-31] MEDS ORDERED: DOPamine PREMIX 250 ML IV PRN ×2 (03:45→15:15)
[2019-10-31] MEDS ORDERED: NS 1000 ML IV.SOLN IV ONE (03:45)
--- NOTE | 2019-10-31 04:12 | NUR ---
Called Spoke w/ Dr. Stuart and made aware of ABG results. New orders received. Will carry out as ordered.
--- NOTE | 2019-10-31 05:01 | NUR ---
ORDERS CALLED DR. JAMISON EXCHANGE (WELDING MACHINE SETTER FOR ) DIALED: [phone] SPOKE TO: QUINN
--- NOTE | 2019-10-31 05:13 | NUR ---
Called Spoke w/ Dr. Whitten regarding Pt status and ABG results. New orders received. Will carry out as ordered.
[2019-10-31] MEDS ORDERED: NS 500 ML IV ONE (06:00)
[2019-10-31] MEDS: metroNIDAZOLE 500 mg/NS 100 ML IV SCH ×2 (06:18→13:10)
[2019-10-31] MEDS: methylPREDNISolone SOD SUCC 40 MG/ML VIAL IVP SCH (06:19)
[2019-10-31 06:21] LABS: ALBUMIN 1.3 g/dL (3.4-4.8); CALCIUM 7.5 mg/dL (8.4-11.0); CREATININE 3.8 mg/dL (0.55-1.30); TOTAL BILIRUBIN 0.6 mg/dL (0.0-1.0)
--- NOTE | 2019-10-31 06:50 | NUR ---
Closing Note Pt in bed, remains unresponsive. A-fib on the monitor, uncontrolled. Pt Vent settings AC 30, 450, 100% +8. Sats in the low mid 90s. Pt has MEHDI PICC Line in place running Levophed @28mcg/min and IVF. Pt has ray catheter in place, draining minimal urine to gravity. Pt has OGT in place, TF on hold, residual >200. H20 flushes held as well. Restraints and Diprivan have been D/C'd. Will endorse to oncoming RN.
[2019-10-31] MEDS: IPRATROPIUM/ALBUTEROL SULFATE 3 ML AMPUL.NEB (DUONEB) INH SCH ×3 (07:17→16:11)
[2019-10-31] MEDS: BUDESONIDE 0.5 MG/2 ML AMPUL.NEB INH SCH (07:17)
[2019-10-31 07:18] LABS: BASOPHILS % (AUTO) 0.1 % (0.0-2.0); EOSINOPHILS % (AUTO) 0.7 % (0.0-4.0); HEMATOCRIT 42.2 % (36-54); LYMPHOCYTES # (AUTO) 0.3 K/uL (1.0-5.5); LYMPHOCYTES % (AUTO) 10.8 % (20.5-51.5); MEAN CORPUSCULAR HEMOGLOBIN 30 pg (27-31); MEAN CORPUSCULAR HGB CONC 33 % (32-36); MEAN CORPUSCULAR VOLUME 92 fL (79.0-98.0); MONOCYTES # (AUTO) 0.1 K/uL (0.0-1.0); MONOCYTES % (AUTO) 3.5 % (1.7-9.3); NEUTROPHILS # (AUTO) 2.5 K/uL (1.8-7.7); RED CELL DISTRIBUTION WIDTH 14.2 % (9.0-15.0); WHITE BLOOD COUNT (AUTO) 2.9 K/uL (4.8-10.8)
--- NOTE | 2019-10-31 07:30 | NUR ---
Opening Note Received plan of care via sbar from endorsing nurse Сергей ALVARES. Completed patient round. Safety measures met.
--- NOTE | 2019-10-31 07:45 | NUR ---
Closing Note Pt in bed, remains unresponsive. A-fib on the monitor, uncontrolled. Pt Vent settings AC 30, 450, 100% +8. Sats in the low mid 90s. Pt has MEHDI PICC Line in place running Levophed @28mcg/min and IVF. Pt has ray catheter in place, draining minimal urine to gravity. Pt has OGT in place, TF on hold, residual >200. H20 flushes held as well. Restraints and Diprivan have been D/C'd. Will endorse to franchesca ALVARES. Addendum: 10/31/19 at 0750 by Сергей Madison RN Wrong time
[2019-10-31] MEDS ORDERED: NOREPINEPHRINE BITARTRATE 4 MG in NS 250 ML IV PRN (08:00)
--- NOTE | 2019-10-31 08:05 | NUR ---
Received call from Dr. Dove and reported critical ABG values. Received orders to DC librium, 1 amp bicarb, ABG at 10AM, and push ET tube down 1cm. Dr. Dove will be in to see patient later.
[2019-10-31] MEDS ORDERED: SODIUM BICARBONATE 8.4% JECT 50 MEQ/50 ML SYRINGE IVP ONE ×2 (08:15→12:00)
--- NOTE | 2019-10-31 08:30 | NUR ---
RT NOTES- ETT AT 25CM LIP LINE PER ADVANCED ETT FROM 24CM TO 25CM LIP LINE WITH RN LANA ASSISTS.
[2019-10-31] MEDS ORDERED: PHENYLEPHRINE HCL 30 MG in NS 247 ML IV PRN (08:45)
[2019-10-31] MEDS: LINEZOLID 300 ML IV SCH (08:55)
[2019-10-31] MEDS: FAMOTIDINE PF 20 MG/2 ML VIAL IVP SCH (08:55)
[2019-10-31] MEDS: ERGOCALCIFEROL 8000 UNITS/ML ORAL SOLUTION, 60 ML BOTTLE GT SCH (08:55)
[2019-10-31] MEDS: ALBUMIN HUMAN 25% 50 ML IV SCH ×2 (08:56→12:40)
[2019-10-31] MEDS: MAG-AL HYDROX/SIMETH 30 ML UDC PO SCH ×2 (08:56→12:40)
[2019-10-31] MEDS: FOLIC ACID 1 MG TABLET PO SCH (08:56)
[2019-10-31] MEDS: THIAMINE HCL 100 MG TABLET GT SCH (08:56)
[2019-10-31] MEDS: POTASSIUM CHLORIDE 20 MEQ/PKT PACKET PO SCH (08:56)
[2019-10-31] MEDS: MUPIROCIN 2% TOPICAL OINTMENT 22 GM NS SCH (08:57)
[2019-10-31] MEDS ORDERED: OSELTAMIVIR PHOSPHATE 75 MG CAPSULE PO SCH (09:00)
[2019-10-31 09:11] LABS: INR 1.3 (0.80-1.20); PROTHROMBIN TIME 12.8 SECS (9.5-12.5)
[2019-10-31 09:52] LABS: NEUTROPHILS % (AUTO) 84.9 % (40.0-70.0)
[2019-10-31 09:53] LABS: PLATELET COUNT (AUTO) 59 K/uL (130-430)
--- NOTE | 2019-10-31 10:15 | NUR ---
Paged Dr. Vyas to report sepsis risk.
[2019-10-31 10:25] LABS: FIBRINOGEN > 840 mg/dL (200-400)
--- NOTE | 2019-10-31 10:50 | NUR ---
Called Dr. Craven and reported critical Fibrogen value of > 840. Received orders for consults for Monica Wagner. Orders for Lasix 40 mg IVP once, double strength 60 neosynephrine and 16 mg levophed. HIV screening test ordered also.
[2019-10-31] MEDS ORDERED: FUROSEMIDE 40 MG/4 ML VIAL IVP ONE (11:00)
[2019-10-31] MEDS ORDERED: NS IV PRN (11:00)
[2019-10-31] MEDS ORDERED: PHENYLEPHRINE HCL IV PRN (11:00)
[2019-10-31] MEDS ORDERED: NOREPINEPHRINE BITARTRATE 16 MG in NS 234 ML IV PRN (11:00)
--- NOTE | 2019-10-31 11:00 | NUR ---
Received okay to go up to 40 mcg/min on Levophed from MD Craven.
--- NOTE | 2019-10-31 11:10 | NUR ---
New consults paged to Dr. Wagner and Dr. Irizarry. Spoke with exchange.
--- NOTE | 2019-10-31 11:30 | NUR ---
Spoke to Dr. Dove regarding ABG. Received orders for 1 amp bicarb IVP.
--- NOTE | 2019-10-31 13:20 | NUR ---
Dr. Craven at bedside. Received orders to bolus 1 L of NS now. Dr. Craven will place new orders.
[2019-10-31] MEDS ORDERED: NACL 0.9% 1,000 ML IV ONE (13:45)
[2019-10-31] MEDS ORDERED: HYDROCORTISONE SOD SUCC 100 MG/2 ML VIAL IVP ONE (13:45)
[2019-10-31] MEDS ORDERED: ALBUMIN HUMAN 25% 200 ML IV ONE (13:45)
--- NOTE | 2019-10-31 13:50 | NUR ---
Clarified order with Dr. Craven. Per , continue with new order of 200ml Albumin over 4 hours IV. Cancel last 50 ML Albumin.
--- NOTE | 2019-10-31 14:00 | NUR ---
Checked patient temp via temporal scan. 106.2. Immediately initiated cooling measures including cooling blanket.
--- NOTE | 2019-10-31 14:45 | NUR ---
Informed Dr. Dove of elevated temperature.
--- NOTE | 2019-10-31 15:51 | NUR ---
Dietitian Recommendations * Consider D/C EN support via OGT and initiate TPN support LP, RD Please refer to Nutrition Assessment for details. Addendum: 10/31/19 at [address] Amended: Links added.
[2019-10-31] MEDS ORDERED: PHENYLEPHRINE HCL 10 MG/ML VIAL (NEOSYNEPHRINE) ONE (16:29)
--- NOTE | 2019-10-31 16:30 | NUR ---
Dr. Sanchez at bedside. Reported elevated temp of 108.3. No new orders.
[2019-10-31] MEDS ORDERED: HYDROCORTISONE SOD SUCC 100 MG/2 ML VIAL IVP SCH (18:00)
--- NOTE | 2019-10-31 18:08 | NUR ---
Was in patient room when noticed vtach on the monitor, checked for pulse and no pulse. Initiated code blue and cpr started. See code blue flow sheet for further details.
--- NOTE | 2019-10-31 18:51 | NUR ---
NOTIFICATION OF EXPIRATION NOTIFIED PHYSICIAN AND CONSULTS OF PATIENTS EXPIRATION DR. WALL -DIALED [phone] SPOKE TO OSIRIS -ALSO NOTIFIED DR. PER FERNANDEZ -DIALED [phone] SPOKE TO [facility] - ALSO NOTIFIED DR. CARABALLO ,DR. AMADO,
--- NOTE | 2019-10-31 19:40 | NUR ---
Closing Note Provided plan of care via sbar to receiving DIA Wilson.
[2019-10-31] MEDS ORDERED: EPINEPHrine JECT 0.1 MG/ML SYR IVP ONE (22:49)
--- NOTE | 2019-10-31 22:50 | NUR ---
PHYSIATRIST BUSINESS FUNCTIONAL ANALYST FORENSIC ATTENDANT LIZBETH SCHUSTER AT BEDSIDE TO BUSINESS FUNCTIONAL ANALYST BODY FOR PHYSIATRIST'S CASE AT THIS TIME.
== END 2019-10-31 22:50 | disposition expired | DRG 720 ==
LOC: SED 11:39 → SIC 13:53
PROVIDERS: ADMIT Internal Medicine; ATTEND Internal Medicine
PROC: 5A1955Z Respiratory Ventilation, Greater than 96 Consecutive Hours (ICD-10-PCS; principal; 2019-10-27)
PROC: 0BH17EZ Insertion of Endotracheal Airway into Trachea, Via Natural or Artificial Opening (ICD-10-PCS; 2019-10-27)
PROC: 0BH17EZ Insertion of Endotracheal Airway into Trachea, Via Natural or Artificial Opening (ICD-10-PCS; 2019-10-27)
PROC: 02HV33Z Insertion of Infusion Device into Superior Vena Cava, Percutaneous Approach (ICD-10-PCS; 2019-10-30)
PROC: B548ZZA Ultrasonography of Superior Vena Cava, Guidance (ICD-10-PCS; 2019-10-30)
DX: A41.9 Sepsis, unspecified organism (principal); D65 Disseminated intravascular coagulation [defibrination syndrome]; E43 Unspecified severe protein-calorie malnutrition; J96.00 Acute respiratory failure, unspecified whether with hypoxia or hypercapnia; N17.0 Acute kidney failure with tubular necrosis; R65.21 Severe sepsis with septic shock; J18.9 Pneumonia, unspecified organism; J45.902 Unspecified asthma with status asthmaticus; F12.10 Cannabis abuse, uncomplicated; E87.6 Hypokalemia; F15.10 Other stimulant abuse, uncomplicated; F17.210 Nicotine dependence, cigarettes, uncomplicated; Z59.0 Homelessness; Z88.0 Allergy status to penicillin; Z79.899 Other long term (current) drug therapy; Z68.25 Body mass index [BMI] 25.0-25.9, adult
CPT/HCPCS: 36415; 36600; 71045; 80048; 80053; 80307; 82803-TC; 83605; 83735-TC; 83880; 84100-TC; 85007; 85025; 85027; 85384-TC; 85610-TC; 85730-TC; 86710; 87040-TC; 87070-TC; 87081; 87205-TC; 92950; 93005; 93306; 94002; 94003; 94640; 96365; 96375; 99291; C1751; G9035; J0171; J0330; J1030; J1720; J1956; J2020; J2060; J2270; J2370; J2704; J2930; J3010; J3475; J3480; J3490; J7030; J7040; J7042; J7050; J7512; J7613; J7626; P9046